=== PATIENT | male | born 1970 | race Caucasian/White ===

== ENCOUNTER 2017-06-04 14:28 | Day surgery (SDC) | payer BC ==
[~2017-06-04] VITALS: Ht 185.4 cm; Wt 87.5 kg
[2017-06-04] VITALS (7 sets, daily range): BP systolic 90–148; BP diastolic 60–92; PULSE 65–87; RESP 16; TEMP 98–98.2; O2SAT 93–100
[2017-06-04] MEDS ORDERED: LORazepam 1 MG TAB SL SCH (15:30)
[2017-06-04] MEDS ORDERED: METOPROLOL TARTRATE 25 MG TAB PO PRN (15:30)
[2017-06-04] MEDS ORDERED: SODIUM CHLORID 0.9% 500 ML IV PRN (15:30)
[2017-06-04] MEDS ORDERED: INSULIN HUMAN REGULAR 1,000 UNITS/10 ML VIAL SQ PRN (15:30)
[2017-06-04] MEDS ORDERED: SODIUM CHLORID 0.9% 500 ML INJ 500 ML IV SCH (15:30)
[2017-06-04] MEDS ORDERED: LACTATED RINGER'S 1000 ML IV PRN (15:30)
[2017-06-04] MEDS ORDERED: POVIDONE IODINE 5% (ANTISEPSIS KIT) 4 APPLICATIONS EACH NARE PRN (15:30)
[2017-06-04] MEDS ORDERED: CHLORHEXIDINE GLUCONATE 2 % 1 PACK (2 CLOTHS) TOPICAL PRN (15:30)
[2017-06-04] MEDS ORDERED: HYDR-3583 PO (15:38)
[2017-06-04] MEDS ORDERED: LISI-515 PO (15:38)
[2017-06-04] MEDS ORDERED: ASPI81CH CHEW (15:38)
[2017-06-04] MEDS ORDERED: SIMV20TA PO (15:38)
[2017-06-04] MEDS ORDERED: PAXI10TA2 PO (15:38)
[2017-06-04] MEDS ORDERED: CYCL1TAB29 PO (15:38)
[2017-06-04] MEDS ORDERED: METO50TA PO (15:38)
[2017-06-04 15:39] LABS: AUTOMATED NEUTROPHIL # 2.5 TH/MM3 (1.8-7.7); BASOPHIL # 0.1 TH/MM3 (0-0.2); EOSINOPHIL # 0.2 TH/MM3 (0-0.4); EOSINOPHIL % 3.5 % (0.0-4.0); HEMO FLAGS DIFF FINAL; LYMPH % 40.3 % (9.0-44.0); LYMPHOCYTE # 2.3 TH/MM3 (1.0-4.8); MEAN CORPUSCULAR HEMOGLOBIN 32.6 PG (27.0-34.0); MONO % 11.5 % (0.0-8.0); NEUT % 43.7 % (16.0-70.0); PLATELET COUNT 275 TH/MM3 (150-450); RED BLOOD COUNT 3.64 MIL/MM3 (4.50-5.90); RED CELL DISTRIBUTION WIDTH 12.9 % (11.6-17.2); WHITE BLOOD COUNT 5.8 TH/MM3 (4.0-11.0)
[2017-06-04 15:57] LABS: APTT (PATIENT) 27.5 SEC (24.3-30.1); INTERNATIONAL NORMALIZED RATIO 0.9 RATIO; POTASSIUM 4.3 MEQ/L (3.5-5.1); PROTHROMBIN TIME - PATIENT 10.3 SEC (9.8-11.6)
[2017-06-04] MEDS ORDERED: ISOPROTERENOL HCL 1 MG/5 ML AMP ONE (16:21)
[2017-06-04] MEDS ORDERED: MIDAZOLAM HCL 2 MG/2 ML VIAL ONE (16:22)
[2017-06-04] MEDS ORDERED: LORazepam 2 MG/ML VIAL IV PRN (18:30)
[2017-06-04] MEDS ORDERED: SODIUM CHLOR 0.9% 250 ML INJ 250 ML IV PRN (18:30)
[2017-06-04] MEDS ORDERED: ATROPINE SULFATE 1 MG/ML VIAL IV PRN (18:30)
[2017-06-04] MEDS ORDERED: LIDOCAINE HCL 1% 50 ML VIAL INFIL PRN (18:30)
[2017-06-04] MEDS ORDERED: METOCLOPRAMIDE HCL 10 MG/2 ML VIAL IV PRN (18:30)
[2017-06-04] MEDS ORDERED: oxyCODONE/ACETAMINOPHEN 5 MG/325 MG TAB PO PRN (18:30)
[2017-06-04] MEDS ORDERED: ONDANSETRON HCL 4 MG/2 ML VIAL IV PRN (18:30)
--- NOTE | 2017-06-04 18:55 | CATHPROC ---
[facility] HIS Report Study Information Study Number Admission Scheduled Start Study Start [id number] Jun 04 2017 2:28PM 06/04/2017 Jun 04 2017 3:27PM [place] Service Electrophysiology Study Admit Source Facility Department Other [facility] - Recruitment Internship Physician and Clinical Staff Initial Prisca Salcedo Enterprise Infrastructure Architect Monie Obrien,TRAFFIC LAW ATTORNEY Other Anesthesia, [employer] Recorder Barbara Martins,RN Scrub Arnol Gasca,RT(R) Procedures Performed Procedure Ablation Procedure Equipment Time Security Professional Description Size Mfg Part Number Used/Scraped BIOSENSE BENDER CATHETER, THERMOCOOL NON- [id number] 17:11 Used INC. CASPER TC D-F *[id number] BIOSENSE BENDER 17:15 SET, TUBING COOLFLOW * [id number] Used INC. [id number] 15:29 [employer] INDUSTRIES PACK, CCL CUSTOM * Used *[id number] 15:29 [employer] PACER GARCIA, LIMB * 2530 *[id number] Used [id number] 17:24 [employer] MEDICAL SHEATH, FR4.5 PRELUDE 11CM FR 4.5 Used [id number] 17:45 NAMIC TUBING, HIGH PRESSURE 48" 48" Used *[id number] 15:29 [employer] BLANKET,WARM AIR CCL * Used *[id number] 035946 17:10 [employer] MEDICAL CATHETER, JSN, QUAD FR 5 Used *[id number] 17:10 [employer] MEDICAL CATHETER, JSN, QUAD FR 5 Used *[id number] 17:10 [employer] MEDICAL CATHETER, JSN, QUAD FR 5 Used *[id number] 121208 17:10 [employer] MEDICAL CATHETER, JSN, QUAD FR 5 Used *[id number] 15:29 [employer] MEDICAL ELECTRODE KIT, CASPER X SURFACE * [id number] Used [id number] 17:10 [employer] MEDICAL SHEATH, EPS, FR5 FAST CATH FR 5 Used *[id number] 17:10 [employer] MEDICAL SHEATH, EPS, FR5 FAST CATH FR 5 Used *[id number] 847530 17:10 [employer] MEDICAL SHEATH, EPS, FR5 FAST CATH FR 5 Used *[id number] 17:10 [employer] MEDICAL SHEATH, EPS, FR6 FAST CATH FR 6 [id number] Used 17:10 [employer] MEDICAL SHEATH, EPS, FR8 FAST CATH FR 8 [id number] Used [facility] PAD, ELECTROSURGICAL 15:29 * [id number] *[id number] Used SURGICAL GROUNDING (BLUE) History: Allergies Allergy Reaction No Known Allergies History: Risk Factors Hypertension Dyslipidemia Yes Yes Labs Hgb (g/dl) Hct (%) RBC (MIL/MM3) WBC (l/cumm) Platelets (thousands) 11.60-17.00 35.00-51.00 4.00-5.90 4.00-11.00 150.00-450.00 11.0 35 3.6 5.8 275 Glucose (mg/dl) BUN (mg/dl) Creatinine (mg/dl) BUN:Creatinine (1:x) 74.00-106.00 7.00-18.00 0.50-1.30 10.00-20.00 73 21 1.1 19.1 Na (meq/l) K (meq/l) 136.00-145.00 3.50-5.10 138 4.3 INR (PTT:PT) 0.90-1.10 0.9 Medication Medication Total Dose (Bolus/Oral) Medication Total Dosage/Unit 1% XYLOCAINE 40 mL Medications (Bolus/Oral) Medication Time Given Dosage/Unit Administered By Reason 1% XYLOCAINE 06/04/2017 5:52:00 PM 20 mL Prisca Conde 20 mL 1% XYLOCAINE given in lab by Prisca Conde in Left Groin via Subcutaneous. 1% XYLOCAINE 06/04/2017 5:55:51 PM 20 mL Prisca Conde 20 mL 1% XYLOCAINE given in lab by Prisca Conde in Right Groin via Subcutaneous. Initial Case Assessment Cardiovascular HR Rhythm NIBP Chest Pain 69 sr w pvc 152/80 0 Edema Present Skin color Skin None Normal Warm Dry Circulatory - Right Pulses Dorsalis Pedis 3 Scale (0,1,2,3,4,d) Circulatory - Left Pulses Dorsalis Pedis 3 Scale (0,1,2,3,4,d) Circulatory - Lower Extremities Color Lower Right Color Lower Left Normal Normal Neurological State Oriented to time-place- Alert Moves all extremities person Respiration - General Respiration Rate SpO2 (%) (B/min) 18 97 Final Case Assessment Cardiovascular HR Rhythm NIBP Chest Pain 100 sr 156/90 0 Edema Present Skin color Skin None Normal Warm Dry Circulatory - Right Pulses Dorsalis Pedis 3 Scale (0,1,2,3,4,d) Circulatory - Left Pulses Dorsalis Pedis 3 Scale (0,1,2,3,4,d) Circulatory - Lower Extremities Color Lower Right Color Lower Left Normal Normal Neurological State Oriented to time-place- Alert Moves all extremities person Respiration - General Respiration Rate SpO2 (%) (B/min) 18 99 Chronological Log Time Study Chronological Log 17:05:17 Patient arrived via Bed. 17:05:18 Patient Name, D.O.B, / Armband Verified By R.N. 17:05:18 Consent signed by the physician and the patient and verified by the Recruitment Internship staff. 17:05:19 Pre-op and post- op instructions given; patient acknowledges understanding of instructions. 17:05:20 Verbal Stimulation=2 Physical Stimulation=2 Airway=2 Respiration=2 TOTAL=8. (0=absent, 1=li mited, 2=present) 17:05:23 Patient has been NPO for More than 6Hrs. 17:05:37 Skin Breakdown- none per pt 17:05:44 Patient Warmer Placed on the Table. 17:05:45 Disposable Defibrillator Pads Placed On Patient. 17:05:45 Meng Prominences Protected 17:05:48 A # 20 IV was noted in the Antecubital (right). Grade = 0 0.9ns kvo 17:05:50 A # 20 IV was noted in the Antecubital (left). Grade = 0 0.9ns kvo 17:05:53 History and physical on the chart or being dictated. 17:10:57 Anesthesia at bedside. Assumes care of patient. Assessment: Initial Case, HR=69 BPM, Rhythm=sr w pvc, PLDA=025/80 mmhg, Chest Pain=0, Edema=Non e, Color=Normal, Skin = Warm, Dry Right Pulses: Gerson Ped=3 Left Pulses: Gerson Ped=3 17:12:07 Lower Right Extremities: Color=Normal Lower Left Extremities: Color=Normal Neurological: State=Alert, Ox3, GARCIA Respiration: Resp=18 B/min, SpO2=97 % 17:16:51 Table restraints applied according to hospital policy 17:16:58 Bilateral groins prepped with 2% chlorhexidine, and with a 3 min. waiting time. 17:32:18 Reference ECG taken 17:33:01 paged 17:47:40 MD arrived. Time Out. Correct patient, procedure, procedure equipment, site and side verified with physicia n present. Time 17:51:22 concurred by MD, individual staff and [employer] Time Out #2 - Consents verified, patient in correct position, all results are labled and displa yed, safety precautions 17:51:46 taken, antibiotics administered. Time out concurred by MD, individual staff and [employer] in procedu re 17:51:54 Case Start 17:52:00 20 mL 1% XYLOCAINE given in lab by Prisca Conde in Left Groin via Subcutaneous. 17:52:29 Vascular access was obtained in the Fem Vein (left). 17:52:32 Vascular access was obtained in the Fem Vein (left). 17:52:38 Vascular access was obtained in the Fem Vein (left). 17:52:42 Vascular access was obtained in the Fem Art (left). A SHEATH, FR4.5 PRELUDE 11CM FR 4.5 was advanced into the Fem Art (left) using the Sonwoody cutdow n technique. 17:54:27 0.9ns pressure bag connected 17:54:54 A SHEATH, EPS, FR5 FAST CATH FR 5 was advanced into the Fem Vein (left) using the Modified Seldinger technique. 17:55:02 A SHEATH, EPS, FR5 FAST CATH FR 5 was advanced into the Fem Vein (left) using the Modified Seldinger technique. 17:55:07 A SHEATH, EPS, FR5 FAST CATH FR 5 was advanced into the Fem Vein (left) using the Modified Seldinger technique. 17:55:51 20 mL 1% XYLOCAINE given in lab by Prisca Conde in Right Groin via Subcutaneous. 17:56:17 Vascular access was obtained in the Fem Vein (right). 17:56:26 Vascular access was obtained in the Fem Vein (right). 17:56:36 A SHEATH, EPS, FR6 FAST CATH FR 6 was advanced into the Fem Vein (right) using the Modified Seldinger technique. 17:56:48 A SHEATH, EPS, FR8 FAST CATH FR 8 was advanced into the Fem Vein (right) using the Modified Seldinger technique. A CATHETER, JSN, QUAD FR 5 was advanced vis Fem Vein (right) and placed in the CS. Placement wa s visually 17:58:46 confirmed under fluoroscopy. 6 fr A CATHETER, JSN, QUAD FR 5 was advanced vis Fem Vein (left) and placed in the HIS. Placement wa s visually 18:00:00 confirmed under fluoroscopy. A CATHETER, JSN, QUAD FR 5 was advanced vis Fem Vein (left) and placed in the RVOT. Placement w as visually 18:00:11 confirmed under fluoroscopy. A CATHETER, JSN, QUAD FR 5 was advanced vis Fem Vein (left) and placed in the HRA. Placement wa s visually 18:00:52 confirmed under fluoroscopy. 18:02:47 EPS in progress 18:27:00 EPS complete. 18:27:53 Quad Catheters removed without difficulty. 18:28:22 EP Procedure was performed. 18:28:46 Ablation procedure performed: ~ABLATION TYPE~. none 18:29:46 Sheath removed; pressure applied to access site left fem arterial site by DB. 18:30:00 DOCU called. Spoke to Madiha 18:30:20 Bedside Report will be given. 18:31:13 Sheaths removed; pressure applied to right fem vein access sites by DC. 18:40:00 Left fem veinsheath removed; pressure applied to access site by DB. 18:51:16 Sterile dressing applied to right fem site by dc. Site wnl. 18:52:57 Case End 18:53:00 No case complications noted. 18:53:29 Defibrillator and ground pads removed. Skin intact. Assessment: Final Case, MY=403 BPM, Rhythm=sr, XYJA=885/90 mmhg, Chest Pain=0, Edema=None, Col or=Normal, Skin = Warm, Dry Right Pulses: Gerson Ped=3 Left Pulses: Gerson Ped=3 18:53:52 Lower Right Extremities: Color=Normal Lower Left Extremities: Color=Normal Neurological: State=Alert, Ox3, GARCIA Respiration: Resp=18 B/min, SpO2=99 % 18:55:45 Sterile dressing applied to left fem site by DB. Site wnl. 19:00:00 Patient moved to stretcher End Study - Contrast Media Used In Study Contrast Total Opened (mL) Total Used (mL) Total Wasted (mL) Unspecified 0 0 0 End Study - Maximum Contrast Load Max Contrast Load (mL) 408.7 End Study - Radiation Exposure Fluoro Time (minutes) 1.8 End Study - Sheaths Sheaths Pulled By Sheath Hold Time (min) Arnol Gasca End Study - Patient Disposition Complications Transferred To Interventional Outcome No Telemetry Bed successful
[2017-06-04] MEDS: oxyCODONE/ACETAMINOPHEN 5 MG/325 MG TAB PO PRN (20:29)
[2017-06-04] MEDS: METOPROLOL TARTRATE 50 MG TAB PO SCH (20:29)
[2017-06-04] MEDS ORDERED: BACITRACIN OINT 0.9 GM PKT TOP ONE (20:30)
[2017-06-04] MEDS ORDERED: PRAVASTATIN SOD 40 MG TAB PO ONE (22:00)
[2017-06-04] MEDS ORDERED: PILL SPLITTER OTHER PRN (22:00)
[2017-06-05] VITALS (14 sets, daily range): BP systolic 110–119; BP diastolic 59–84; PULSE 52–95; RESP 16; TEMP 98.2–98.3; O2SAT 98–99
[2017-06-05] MEDS: oxyCODONE/ACETAMINOPHEN 5 MG/325 MG TAB PO PRN ×3 (04:10→12:03)
[2017-06-05] MEDS: METOPROLOL TARTRATE 50 MG TAB PO SCH (08:10)
[2017-06-05] MEDS: CYCLOBENZAPRINE HCL 10 MG TAB PO SCH ×2 (08:11→12:05)
[2017-06-05] MEDS ORDERED: NON-FORMULARY DRUG (Simvastatin 20 MG) PO SCH (09:00)
[2017-06-05] MEDS ORDERED: LISINOPRIL 20 MG TAB PO SCH (09:00)
[2017-06-05] MEDS ORDERED: PARoxetine HCL 20 MG TAB PO SCH (09:00)
[2017-06-05] MEDS ORDERED: PRAVASTATIN SOD 40 MG TAB PO SCH (09:00)
[2017-06-05] MEDS ORDERED: ASPIRIN 81 MG CHEW TAB CHEW SCH (09:00)
[2017-06-05] MEDS ORDERED: PAROXETINE 10 MG PO SCH (09:00)
--- NOTE | 2017-06-05 12:39 | HHI.PR ---
Subjective Remarks Feeling ok Objective Vital Signs Date Time Temp Pulse Resp B/P (MAP) Pulse Ox O2 Delivery O2 Flow Rate FiO2 06/05/17 11:21 98.2 73 16 110/59 (76) 98 06/05/17 11:21 95 06/05/17 10:00 68 06/05/17 09:11 66 06/05/17 09:10 16 06/05/17 08:38 70 06/05/17 08:38 98.3 61 16 119/84 (96) 99 06/05/17 06:15 71 06/05/17 05:19 61 06/05/17 04:32 52 06/05/17 03:40 98.2 61 16 117/76 (90) 99 06/05/17 03:17 72 06/05/17 02:20 62 06/05/17 01:10 68 06/05/17 00:10 61 06/04/17 23:15 98.0 65 16 90/60 (70) 93 06/04/17 23:00 67 06/04/17 22:00 76 06/04/17 21:00 74 06/04/17 20:15 98.2 72 16 141/92 (108) 100 06/04/17 20:00 70 06/04/17 15:21 98.1 87 16 148/81 (103) 98 I/O 06/04/17 06/04/17 06/04/17 06/05/17 06/05/17 06/05/17 07:00 15:00 23:00 07:00 15:00 23:00 Intake Total 480 ml Output Total 875 ml Balance -395 ml Intake Oral 480 ml Output Urine Total 875 ml Result Diagram: 06/04/17 1454 06/04/17 1454 Imaging Alert, fully oriented Heart: S1, S2 regular, no gallop Abdomen: soft, no mass Ext: no edema Current Medications Medications (Trade) Dose Ordered Sig/Trevor Route Start Time Stop Time Status Last Admin Lactated Ringer's 1,000 ml @ 30 mls/hr Q24H PRN IV 06/04/17 15:30 06/07/17 15:29 Sodium Chloride 500 ml @ 30 mls/hr [id number] PRN IV 06/04/17 15:30 06/07/17 15:29 (Lopressor) 25 mg SURGICAL FIRST ASSISTANT PRN PO 06/04/17 15:30 06/07/17 15:29 (Betadine 5% Antisepsis Kit) 1 applic SURGICAL FIRST ASSISTANT PRN EACH NARE 06/04/17 15:30 06/07/17 15:29 (Chlorhexidine 2% Cloth) 3 pack SURGICAL FIRST ASSISTANT PRN TOPICAL 06/04/17 15:30 06/07/17 15:29 (NovoLIN R INJ) See Protocol Table ... SURGICAL FIRST ASSISTANT PRN SQ 06/04/17 15:30 06/07/17 15:29 Sodium Chloride 500 ml @ 30 mls/hr [id number] IV 06/04/17 15:30 (Ativan) 1 mg SURGICAL FIRST ASSISTANT SL 06/04/17 15:30 06/07/17 15:29 (Percocet 5-325 Mg) 1 tab Q4H PRN PO 06/04/17 18:30 (Percocet 5-325 Mg) 2 tab Q4H PRN PO 06/04/17 18:30 06/05/17 12:03 (Ativan Inj) 0.5 mg UNSCH PRN IV 06/04/17 18:30 06/05/17 18:29 (Atropine Inj) 0.5 mg UNSCH PRN IV 06/04/17 18:30 Sodium Chloride 250 ml @ 500 mls/hr ONCE PRN IV 06/04/17 18:30 06/05/17 18:29 (Reglan Inj) 10 mg Q4H PRN IV 06/04/17 18:30 (Zofran Inj) 4 mg Q4H PRN IV 06/04/17 18:30 (Xylocaine 1% Inj (50 ml)) 10 ml UNSCH PRN INFIL 06/04/17 18:30 06/05/17 18:29 (Aspirin Chew) 81 mg DAILY CHEW 06/05/17 09:00 06/05/17 08:10 (Flexeril) 10 mg TID PO 06/05/17 09:00 06/05/17 12:05 (Prinivil) 20 mg DAILY PO 06/05/17 09:00 06/05/17 08:10 (Lopressor) 50 mg BID PO 06/04/17 21:00 06/05/17 08:10 (Paxil) 10 mg DAILY PO 06/05/17 09:00 06/05/17 08:10 (Pill Splitter) 1 ea UNSCH PRN OTHER 06/04/17 22:00 (Pravachol) 40 mg DAILY PO 06/05/17 09:00 Assessment and Plan Problem List: (1) PVC (premature ventricular contraction) ICD Codes: I49.3 - Ventricular premature depolarization Plan: No PVCs Negative EP study Continue with current meds Ok to Follow up as previously scheduled (2) Syncope ICD Codes: R55 - Syncope and collapse Status: Chronic Plan: No new episode Stable Prisca Conde MD Jun 05, 2017 12:39
--- NOTE | 2017-06-05 12:52 | MA ---
cc: KELLY BROWN HANSCY M.D. DATE: 06/04/2017 PROCEDURE Electrophysiology study, CS cannulation. INDICATION Mr. 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 The risks, the nature and the benefit of the procedure were clearly stated to him. The risks include pneumothorax, cardiac perforation, stroke, need for open heart surgery and even . The patient understood and agreed to proceed. DETAILS OF PROCEDURE After written informed consent was obtained, the patient was brought to the EP lab where he was prepped and draped in the usual sterile fashion. Conscious sedation was initiated and maintained throughout the procedure by the anesthesiologist. Once sedation was verified, the left and right inguinal area was anesthetized with 2% Xylocaine. Using modified Seldinger technique, the left femoral vein was cannulated on three occasions and three guidewires were advanced. Over the wires three 5-Bangladeshi Hemaquets were advanced. Then the right femoral vein was cannulated on two occasions and two guidewires were advanced. Over the wire a 6 and an 8-Bangladeshi Hemaquet were advanced. Then under fluoroscopic guidance through the 5 and 6-Bangladeshi Hemaquets, four 5-Bangladeshi Princess curved quadripolar electrophysiology catheters were advanced and positioned on the His, upper right atrium, coronary sinus and right ventricular apex. Basic intervals were measured and were within normal limits. At this point atrial pacing protocol was performed. No tachyarrhythmia was induced. The patient was observed on the table. No PVCs were observed. The patient was observed for over an hour. No PVCs or tachyarrhythmia was induced. Then ventricular pacing protocol was performed. No tachyarrhythmia was induced. The patient was basically awake during the whole monitoring. At that point the procedure was complete. All catheters and Hemaquets were removed. There is no need for ablation. The patient will continue on beta-cristian. He will be transferred to the recovery room. No incident report. The patient tolerated the procedure. Blood loss minimal. FINDINGS 1. Electrocardiogram: At baseline the patient was sinus. Post procedure electrocardiogram was unchanged. 2. Basic intervals: Basic cycle length was around 140 milliseconds. H was 100 and HV was around 52 milliseconds. 3. Ventricular pacing protocol: No tachyarrhythmia was induced. CONCLUSION Negative electrophysiology study for supraventricular tachyarrhythmia. COMMENT/RECOMMENDATION At this point the patient is going to be transferred to the telemetry unit. He will be observed. I will keep him on beta cristian. If still symptomatic the beta cristian will be discontinued and the patient will be observed. Prisca Conde MD HS/BT /12:26 PM /12:33 PM
--- NOTE | 2017-06-05 13:09 | EKG ---
Date Performed: 06/04/2017 Time Performed: 15:20:36 PTAGE: 46 years EKG: Sinus rhythm Normal ECG NO PREVIOUS TRACING DOCTOR: Trudi Bell Interpretating Date/Time 06/05/2017 13:07:23
--- NOTE | 2017-06-05 13:17 | EKG ---
Date Performed: 06/05/2017 Time Performed: 03:56:48 PTAGE: 46 years EKG: Sinus rhythm Inferior and lateral ST elevation - possible early repolarization Borderline ECG PREVIOUS TRACING : 06/04/2017 15.20 Compared to prior tracing no significant change DOCTOR: Trudi Bell Interpretating Date/Time 06/05/2017 13:15:46
== END 2017-06-05 13:45 | disposition home or self-care (01) ==
LOC: HDOC 14:28 → HDIC 14:29 → HCIN 19:49 → HDOC 06-05 13:45
PROVIDERS: ATTEND Internal Medicine Interventional Cardiology
DX: R55 Syncope and collapse (principal); I47.2 Ventricular tachycardia; R42 Dizziness and giddiness; I10 Essential (primary) hypertension; E78.5 Hyperlipidemia, unspecified; I08.1 Rheumatic disorders of both mitral and tricuspid valves; F17.210 Nicotine dependence, cigarettes, uncomplicated; Z79.82 Long term (current) use of aspirin; Z79.899 Other long term (current) drug therapy
CPT/HCPCS: 80048; 85025; 85610; 85730; 86850; 86900; 86901; 93005; 93620; C1730; C1732; J2250; J3010